=== PATIENT | female | born 2005 | race African-American/Black ===

== ENCOUNTER 2025-06-20 17:41 | Emergency (ER) | payer SELFPAY ==
[2025-06-20 18:00] VITALS: BP 151/86; PULSE 86; RESP 20; TEMP 36.8; O2SAT 99
[2025-06-20] MEDS: LIDOCAINE 1% LOCAL INJ 2 ML AMPUL 6 ML INFILTRATE (18:06)
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
== END 2025-06-20 18:40 | disposition home or self-care (01) ==
PROVIDERS: Emergency Provider Nurse Practitioner Family
DX: S51.812A Laceration without foreign body of left forearm, initial encounter (principal); W45.8XXA Other foreign body or object entering through skin, initial encounter; E78.00 Pure hypercholesterolemia, unspecified
CPT/HCPCS: 12002; 99202; G0463; J2003